=== PATIENT | female | born 1990 | race African-American/Black ===

== ENCOUNTER 2016-09-20 10:25 | Emergency (ER) | payer OTHER ==
[~2016-09-20] VITALS: Ht 167.6 cm; Wt 73.0 kg
[2016-09-20 14:33] LABS: CLARITY URINE CLOUDY (CLEAR); COLOR URINE YELLOW (YELLOW); GLUCOSE URINE NEGATIVE (NEGATIVE); KETONES URINE TRACE (NEGATIVE); LEUKOCYTE ESTERASE URINE 2+ (NEGATIVE); NITRITE URINE NEGATIVE (NEGATIVE); OCCULT BLOOD URINE NEGATIVE (NEGATIVE); PROTEIN URINE NEGATIVE (NEGATIVE); SPECIFIC GRAVITY URINE 1.005 (1.005-1.030)
[2016-09-20 14:48] LABS: HEMATOCRIT. 32.2 % (36.0-48.0); HEMOGLOBIN. 11.3 g/dL (12.0-16.0); MEAN CORPUSCULAR HEMOGLOBIN 31.9 pg (28.0-32.0); MEAN CORPUSCULAR VOLUME 90.8 fL (81.0-99.0); PLATELET 166 x1000/uL (130-400); RED BLOOD CELL COUNT 3.55 mill/uL (4.2-5.4); RED CELL DISTRIBUTION WIDTH 13.1 % (11.6-14.6)
[2016-09-20 14:49] LABS: CHLORIDE 106 mEq/L (98-107)
[2016-09-20 14:56] LABS: CARBON DIOXIDE 26 mEq/L (21-32)
[2016-09-20 15:13] LABS: B-HCG QUANTITATIVE 21190 mIU/mL (<3)
[2016-09-20] MEDS ORDERED: HYDROCODONE/ACETAMINOPHEN 5/325MG TABLET PO ONE (15:30)
[2016-09-20] MEDS ORDERED: ONDANSETRON 4MG ODT PO ONE (16:30)
[2016-09-20 16:46] LABS: PLATELET ESTIMATE NORMAL
[2016-09-20 17:57] VITALS: BP 108/62
== END 2016-09-20 18:00 | disposition home or self-care (01) ==
LOC: ER 13:18
DX: O23.42 Unspecified infection of urinary tract in pregnancy, second trimester (principal); N39.0 Urinary tract infection, site not specified; R51 Headache; Z3A.00 Weeks of gestation of pregnancy not specified
CPT/HCPCS: 36415; 80048; 81001; 84702; 85025; 99284; Q0162; Z7610